=== PATIENT | female | born 1975 | race African-American/Black ===

== ENCOUNTER 2018-12-25 12:58 | Emergency (ER) | payer MEDICAID, OTHER ==
[~2018-12-25] VITALS: Ht 243.8 cm; Wt 63.0 kg
[~2018-12-25 12:58] MED LIST: MIRT15TA6 PO
[2018-12-25] MEDS ORDERED: KETOROLAC 30MG/ML VIAL IM ONE (14:45)
[2018-12-25] MEDS ORDERED: METHOCARBAMOL 500MG TABLET PO ONE (14:45)
[2018-12-25 16:41] LABS: CLARITY URINE CLEAR (CLEAR); COLOR URINE YELLOW (YELLOW); KETONES URINE TRACE (NEGATIVE); LEUKOCYTE ESTERASE URINE NEGATIVE (NEGATIVE); NITRITE URINE NEGATIVE (NEGATIVE); OCCULT BLOOD URINE NEGATIVE (NEGATIVE); PROTEIN URINE NEGATIVE (NEGATIVE); SPECIFIC GRAVITY URINE 1.027 (1.005-1.030)
[2018-12-25 16:59] VITALS: BP 115/73
== END 2018-12-25 17:01 | disposition home or self-care (01) ==
LOC: ER 12:58
DX: M54.6 Pain in thoracic spine (principal); F12.10 Cannabis abuse, uncomplicated
CPT/HCPCS: 81003; 81025; 96372; 99283; J1885

== ENCOUNTER 2019-03-08 07:39 | Emergency (ER) | payer MEDICAID, OTHER ==
[~2019-03-08] VITALS: Ht 167.6 cm; Wt 63.0 kg
[2019-03-08] MEDS ORDERED: SODIUM CHLORIDE 0.9% 1,000 ML IV ONE ×2 (08:08→09:17)
[2019-03-08] MEDS ORDERED: KETOROLAC 30MG/ML VIAL IV STA (08:08)
[2019-03-08 08:58] LABS: BASOPHILS % 0.2 % (0.0-2.0); EOSINOPHILS % 0.4 % (0.0-5.0); HEMATOCRIT. 37.9 % (36.0-48.0); HEMOGLOBIN. 12.5 g/dL (12.0-16.0); LYMPHOCYTES % 38.1 % (20.0-50.0); MEAN CORPUSCULAR HEMOGLOBIN 29.2 pg (28.0-32.0); MEAN CORPUSCULAR VOLUME 88.7 fL (81.0-99.0); MEAN PLATELET VOLUME 7.3 fl (7.4-10.4); MONOCYTES % 5.6 % (2.0-8.0); NEUTROPHILS % 55.7 % (40.0-76.0); PLATELET 189 x1000/uL (130-400); RED BLOOD CELL COUNT 4.27 mill/uL (4.2-5.4); RED CELL DISTRIBUTION WIDTH 13.6 % (11.6-14.6)
[2019-03-08 08:59] LABS: CHLORIDE 107 mEq/L (98-107)
[2019-03-08] MEDS ORDERED: ONDANSETRON HCL 4MG/2ML INJ IV ONE ×2 (10:00→11:15)
[2019-03-08 10:14] LABS: HCG SCREEN NEGATIVE
[2019-03-08 11:21] LABS: CLARITY URINE CLEAR (CLEAR); COLOR URINE YELLOW (YELLOW); KETONES URINE NEGATIVE (NEGATIVE); LEUKOCYTE ESTERASE URINE NEGATIVE (NEGATIVE); NITRITE URINE NEGATIVE (NEGATIVE); OCCULT BLOOD URINE NEGATIVE (NEGATIVE); PH URINE 7.5 (4.5-8.0); PROTEIN URINE NEGATIVE (NEGATIVE); SPECIFIC GRAVITY URINE 1.014 (1.005-1.030); UROBILINOGEN URINE 0.2 E.U./dL (0.2-1.0)
[2019-03-08 18:02] VITALS: BP 131/71
== END 2019-03-08 18:07 | disposition short-term general hospital (02) ==
LOC: ER 07:39 → ENRESERV 17:30 → CANRESERV 17:30 → ER 18:07 → CANBEDREQ 19:15
DX: R10.30 Lower abdominal pain, unspecified (principal); R11.2 Nausea with vomiting, unspecified; R19.7 Diarrhea, unspecified; R50.9 Fever, unspecified; D25.9 Leiomyoma of uterus, unspecified; R05 Cough; F12.90 Cannabis use, unspecified, uncomplicated
CPT/HCPCS: 36415; 71045; 74176; 80053; 81003; 83605; 84145; 84484; 84703; 85025; 85610; 87040; 87086; 93005; 96361; 96374; 96375; 96376; 99285; J1885; J2405; J7030

== ENCOUNTER 2019-06-08 14:34 | Emergency (ER) | payer MEDICAID, OTHER ==
[~2019-06-08] VITALS: Ht 162.6 cm; Wt 58.0 kg
[2019-06-08] MEDS ORDERED: KETOROLAC 30MG/ML VIAL IV ONE (18:45)
[2019-06-08] MEDS ORDERED: PROCHLORPERAZINE MALEATE 10MG TABLET PO ONE (18:45)
[2019-06-08 20:27] VITALS: BP 118/81
== END 2019-06-08 20:28 | disposition home or self-care (01) ==
LOC: ER 14:34
DX: S09.8XXA Other specified injuries of head, initial encounter (principal); W01.198A Fall on same level from slipping, tripping and stumbling with subsequent striking against other object, initial encounter; Y93.89 Activity, other specified; Y92.89 Other specified places as the place of occurrence of the external cause; F12.90 Cannabis use, unspecified, uncomplicated
CPT/HCPCS: 81025; 96374; 99283; J1885; Q0164

== ENCOUNTER 2021-12-07 09:02 | Emergency (ER) | payer MEDICAID ==
[~2021-12-07] VITALS: Ht 160 cm; Wt 57.0 kg
[~2021-12-07 09:02] MED LIST changes: +MIRT-89 PO; -MIRT15TA6 PO
[2021-12-07] MEDS ORDERED: ONDANSETRON HCL 4MG/2ML INJ IV STA (09:38)
[2021-12-07] MEDS ORDERED: SODIUM CHLORIDE 0.9% 1,000 ML IV ONE (09:45)
[2021-12-07 11:43] LABS: BASOPHILS % 0.5 % (0.0-2.0); EOSINOPHILS % 0.1 % (0.0-5.0); HEMATOCRIT. 37.9 % (36.0-48.0); HEMOGLOBIN. 13.5 g/dL (12.0-16.0); LYMPHOCYTES % 34.3 % (20.0-50.0); MEAN CORPUSCULAR VOLUME 86.7 fL (81.0-99.0); MEAN PLATELET VOLUME 7.2 fl (7.4-10.4); MONOCYTES % 5.7 % (2.0-8.0); NEUTROPHILS % 59.4 % (40.0-76.0); PLATELET 190 x1000/uL (130-400); RED BLOOD CELL COUNT 4.37 mill/uL (4.2-5.4); RED CELL DISTRIBUTION WIDTH 14.1 % (11.6-14.6)
[2021-12-07 11:45] LABS: CHLORIDE 105 mEq/L (98-107)
[2021-12-07] MEDS ORDERED: ONDA4TAB5 MT ×2 (12:13→12:34)
[2021-12-07 12:32] VITALS: BP 123/86
[2021-12-07] MEDS ORDERED: ONDANSETRON HCL 4MG TABLET PO ONE (12:45)
== END 2021-12-07 13:01 | disposition home or self-care (01) ==
LOC: ER 09:22
DX: R11.2 Nausea with vomiting, unspecified (principal); F32.9 Major depressive disorder, single episode, unspecified; F12.10 Cannabis abuse, uncomplicated; Z79.899 Other long term (current) drug therapy
CPT/HCPCS: 36415; 80053; 83690; 85025; 93005; 99284; J2405; J7030; Q0162; Z7610

== ENCOUNTER 2022-04-24 14:17 | Emergency (ER) | payer MEDICAID, MEDICARE ==
[~2022-04-24] VITALS: Ht 152.4 cm; Wt 55.0 kg
[~2022-04-24 14:17] MED LIST changes: +ONDA4TAB5 MT
[2022-04-24 14:20] VITALS: BP 99/56
[2022-04-24] MEDS ORDERED: IBUPROFEN 600MG TABLET PO ONE (16:00)
[2022-04-24] MEDS ORDERED: IBUP-2029 MT (17:31)
== END 2022-04-24 17:47 | disposition home or self-care (01) ==
LOC: ER 14:17
DX: S60.041A Contusion of right ring finger without damage to nail, initial encounter (principal); W25.XXXA Contact with sharp glass, initial encounter; Y93.89 Activity, other specified; Y92.89 Other specified places as the place of occurrence of the external cause; Y99.8 Other external cause status; F32.9 Major depressive disorder, single episode, unspecified; F12.10 Cannabis abuse, uncomplicated
CPT/HCPCS: 73140; 99283

== ENCOUNTER 2022-08-12 20:29 | Emergency (ER) | payer MEDICAID, MEDICARE ==
[~2022-08-12] VITALS: Ht 162.6 cm; Wt 65.0 kg
[~2022-08-12 20:29] MED LIST changes: +IBUP-2029 MT
[2022-08-12] MEDS ORDERED: ONDANSETRON HCL 4MG/2ML INJ IV STA (23:05)
[2022-08-12] MEDS ORDERED: KETOROLAC 30MG/ML VIAL IV STA (23:05)
[2022-08-12] MEDS ORDERED: FAMOTIDINE 20MG/2ML VIAL IV STA (23:05)
[2022-08-12] MEDS ORDERED: SODIUM CHLORIDE 0.9% 1,000 ML IV ONE (23:15)
[2022-08-12 23:34] LABS: CHLORIDE 104 mEq/L (98-107)
[2022-08-12 23:36] LABS: PROTHROMBIN TIME 10.5 sec (9.6-11.0)
[2022-08-12 23:38] LABS: BASOPHILS % 0.3 % (0.0-2.0); EOSINOPHILS % 0.1 % (0.0-5.0); HEMATOCRIT. 37.6 % (36.0-48.0); HEMOGLOBIN. 12.2 g/dL (12.0-16.0); LYMPHOCYTES % 21.2 % (20.0-50.0); MEAN CORPUSCULAR HEMOGLOBIN 29.3 pg (28.0-32.0); MEAN PLATELET VOLUME 7.7 fl (7.4-10.4); MONOCYTES % 9.8 % (2.0-8.0); NEUTROPHILS % 68.6 % (40.0-76.0); PLATELET 198 x1000/uL (130-400); RED BLOOD CELL COUNT 4.18 mill/uL (4.2-5.4); RED CELL DISTRIBUTION WIDTH 13.7 % (11.6-14.6)
[2022-08-12 23:45] LABS: ETHANOL BLOOD < 10 mg/dL; HCG SCREEN NEGATIVE
[2022-08-13 00:40] LABS: CLARITY URINE CLOUDY (CLEAR); COLOR URINE YELLOW (YELLOW); KETONES URINE 1+ (NEGATIVE); LEUKOCYTE ESTERASE URINE TRACE (NEGATIVE); NITRITE URINE NEGATIVE (NEGATIVE); OCCULT BLOOD URINE NEGATIVE (NEGATIVE); PH URINE 6.5 (4.5-8.0); PROTEIN URINE 1+ (NEGATIVE)
[2022-08-13] MEDS ORDERED: METOCLOPRAMIDE HCL 10MG/2ML VIAL IV ONE (03:15)
[2022-08-13 08:31] VITALS: BP 119/70
[2022-08-14] MEDS ORDERED: PROT40 MT (21:33)
[2022-08-14] MEDS ORDERED: ONDA4TAB50 MT (21:33)
[2022-08-14] MEDS ORDERED: POLY119P2 MT (21:33)
== END 2022-08-13 08:57 | disposition home or self-care (01) ==
LOC: ER 20:29
DX: R10.0 Acute abdomen (principal); R07.89 Other chest pain; F12.90 Cannabis use, unspecified, uncomplicated; L75.0 Bromhidrosis
CPT/HCPCS: 36415; 71045; 74176; 76705; 80053; 80320; 81003; 81025; 83690; 84484; 84703; 85025; 85610; 96361; 96374; 96375; 99285; J1885; J2405; J2765; J3490; J7030; Z7610; G0480

== ENCOUNTER 2022-08-14 17:48 | Emergency (ER) | payer MEDICARE ==
[~2022-08-14] VITALS: Ht 165.1 cm; Wt 45.0 kg
[2022-08-14 17:57] VITALS: BP 122/77
[2022-08-14] MEDS ORDERED: ONDANSETRON 4MG ODT PO STA (18:13)
[2022-08-14] MEDS ORDERED: MAGNESIUM/ALUMINUM HYDROXIDE/SIMETHICONE 30ML UDC PO STA (18:13)
[2022-08-14] MEDS ORDERED: POLYETHYLENE GLYCOL 3350 (17GM) 1 DOSE PACK PO ONE (18:15)
[2022-08-14 20:15] LABS: CLARITY URINE CLOUDY (CLEAR); COLOR URINE YELLOW (YELLOW); KETONES URINE TRACE (NEGATIVE); LEUKOCYTE ESTERASE URINE 2+ (NEGATIVE); NITRITE URINE NEGATIVE (NEGATIVE); OCCULT BLOOD URINE 1+ (NEGATIVE); PROTEIN URINE TRACE (NEGATIVE); SPECIFIC GRAVITY URINE 1.019 (1.005-1.030); UROBILINOGEN URINE 0.2 E.U./dL (0.2-1.0)
[2022-08-14 20:28] LABS: *AMPHETAMINES SCREEN URINE NEGATIVE (NEGATIVE); *BARBITURATES SCREEN URINE NEGATIVE (NEGATIVE); *BENZODIAZEPINES SCREEN URINE NEGATIVE (NEGATIVE); *COCAINE SCREEN URINE NEGATIVE (NEGATIVE); METHADONE URINE SCREEN NEGATIVE (NEGATIVE); OPIATES URINE SCREEN NEGATIVE (NEGATIVE); PHENCYCLIDINE URINE SCREEN NEGATIVE (NEGATIVE)
[2022-08-14 20:30] LABS: BASOPHILS % 0.4 % (0.0-2.0); HEMOGLOBIN. 14.1 g/dL (12.0-16.0); LYMPHOCYTES % 35.5 % (20.0-50.0); MEAN CORPUSCULAR HEMOGLOBIN 29.5 pg (28.0-32.0); MEAN CORPUSCULAR VOLUME 88.1 fL (81.0-99.0); MEAN PLATELET VOLUME 7.5 fl (7.4-10.4); MONOCYTES % 9.7 % (2.0-8.0); NEUTROPHILS % 54.4 % (40.0-76.0); PLATELET 216 x1000/uL (130-400); RED BLOOD CELL COUNT 4.77 mill/uL (4.2-5.4); RED CELL DISTRIBUTION WIDTH 13.7 % (11.6-14.6)
[2022-08-14 21:05] LABS: CHLORIDE 100 mEq/L (98-107)
[2022-08-14 21:05] LABS: CANNABINOID URINE SCREEN PRESUMTIVE POSITIVE (NEGATIVE)
[2022-08-14 21:17] LABS: ETHANOL BLOOD < 10 mg/dL
[2022-08-14] MEDS ORDERED: PROT40 MT (21:33)
[2022-08-14] MEDS ORDERED: ONDA4TAB50 MT (21:33)
[2022-08-14] MEDS ORDERED: POLY119P2 MT (21:33)
== END 2022-08-14 21:50 | disposition home or self-care (01) ==
LOC: ER 17:48
DX: K59.00 Constipation, unspecified (principal); R10.84 Generalized abdominal pain; F12.10 Cannabis abuse, uncomplicated; Z79.899 Other long term (current) drug therapy
CPT/HCPCS: 36415; 74018; 76705; 80053; 80305; 80320; 81003; 83690; 85025; 99285; Q0162; Z7610; G0480